=== PATIENT | female | born 1955 | race Caucasian/White ===

== ENCOUNTER → 2018-05-09 | Outpatient (CLI) | payer OTHER | END | disposition home or self-care (01) | LOC: RAH 09:48 | PROVIDERS: ATTEND Internal Medicine Medical Oncology | DX: R92.8 Other abnormal and inconclusive findings on diagnostic imaging of breast (principal); Z85.3 Personal history of malignant neoplasm of breast; Z98.82 Breast implant status | CPT/HCPCS: 77065 ==

== ENCOUNTER 2018-08-17 05:30 | Day surgery (SDC) | payer OTHER ==
[2018-08-17] VITALS (7 sets, daily range): BP systolic 105–144; BP diastolic 65–86
[~2018-08-17] VITALS: Ht 170.2 cm; Wt 85.7 kg
[~2018-08-17 05:30] MED LIST: APIX2.5T PO; ENAL1TAB10 PO; LETR2.5T6 PO; LEVO25TA54 PO; MONT10TA24 PO; P EP PO; ROSU10TA27 PO
[2018-08-17] MEDS ORDERED: SODIUM CHLORIDE 0.9% 1000ML 1,000 ML IV ONE (05:48)
[2018-08-17] MEDS ORDERED: PROPOFOL 10 MG/ML 20ML VIAL IV ONE ×2 (06:31)
[2018-08-17] MEDS ORDERED: GLYCOPYRROLATE 0.2 MG/ML 5 ML VIAL ONE (06:32)
[2018-08-17] MEDS ORDERED: LIDOCAINE HCL 1% 20 ML VIAL ONE (06:32)
== END 2018-08-17 07:55 | disposition home or self-care (01) ==
LOC: DAH 05:30 → ENDO 05:30
PROVIDERS: ATTEND Internal Medicine
DX: K62.1 Rectal polyp (principal); K64.0 First degree hemorrhoids; K57.30 Diverticulosis of large intestine without perforation or abscess without bleeding; Z86.010 Personal history of colon polyps; K31.7 Polyp of stomach and duodenum; K44.9 Diaphragmatic hernia without obstruction or gangrene; K31.89 Other diseases of stomach and duodenum; K22.8 Other specified diseases of esophagus; I10 Essential (primary) hypertension; E78.5 Hyperlipidemia, unspecified; J45.909 Unspecified asthma, uncomplicated; Z80.0 Family history of malignant neoplasm of digestive organs; Z98.890 Other specified postprocedural states; Z98.51 Tubal ligation status; Z79.899 Other long term (current) drug therapy; K21.9 Gastro-esophageal reflux disease without esophagitis; Z88.8 Allergy status to other drugs, medicaments and biological substances; K29.50 Unspecified chronic gastritis without bleeding
CPT/HCPCS: 43239; 45380; 88305; A4606 ×2; J2704 ×2; J3490; J7030; 45378

== ENCOUNTER → 2019-04-17 | Outpatient (CLI) | payer OTHER ==
[~2019-04-17] MED LIST changes: -ROSU10TA27 PO; +ROSU10TA28 PO
== END | disposition home or self-care (01) ==
LOC: RAH 04-13 08:47
PROVIDERS: ATTEND Family Medicine
DX: Z98.82 Breast implant status (principal); R89.7 Abnormal histological findings in specimens from other organs, systems and tissues; Z91.040 Latex allergy status; Z85.3 Personal history of malignant neoplasm of breast; Z90.11 Acquired absence of right breast and nipple
CPT/HCPCS: 77065

== ENCOUNTER → 2019-05-04 | Outpatient (CLI) | payer OTHER | END | disposition home or self-care (01) | LOC: RAH 07:56 | PROVIDERS: ATTEND Family Medicine | DX: R10.2 Pelvic and perineal pain (principal); R31.9 Hematuria, unspecified; Z79.811 Long term (current) use of aromatase inhibitors | CPT/HCPCS: 76700; 76856 ==

== ENCOUNTER → 2020-05-02 | Outpatient (CLI) | payer MEDICARE ==
[~2020-05-02] MED LIST changes: -LETR2.5T6 PO; +LETR2.5T7 PO; -MONT10TA24 PO; +MONT10TA26 PO
== END | disposition home or self-care (01) ==
LOC: RAH 12:40
PROVIDERS: ATTEND Family Medicine
DX: R92.8 Other abnormal and inconclusive findings on diagnostic imaging of breast (principal); Z98.82 Breast implant status; Z85.3 Personal history of malignant neoplasm of breast
CPT/HCPCS: 77065

== ENCOUNTER → 2020-10-15 | Outpatient (CLI) | payer MEDICARE ==
[~2020-10-15] MED LIST changes: -MONT10TA26 PO; +MONT10TA32 PO
== END | disposition home or self-care (01) ==
LOC: RAH 11:26
PROVIDERS: ATTEND Urology
DX: R31.29 Other microscopic hematuria (principal)
CPT/HCPCS: 76770

== ENCOUNTER → 2021-05-21 | Outpatient (CLI) | payer MEDICARE ==
[~2021-05-21] MED LIST changes: +MONT-39 PO; -MONT10TA32 PO
== END | disposition home or self-care (01) ==
LOC: RAH 12:46
PROVIDERS: ATTEND Internal Medicine Medical Oncology
DX: C50.911 Malignant neoplasm of unspecified site of right female breast (principal); R92.2 Inconclusive mammogram
CPT/HCPCS: 77065

== ENCOUNTER → 2021-12-04 | Outpatient (CLI) | payer MEDICARE ==
[~2021-12-04] MED LIST changes: +ENAL1TAB PO; -ENAL1TAB10 PO
== END | disposition home or self-care (01) ==
LOC: SHCH 12:54
PROVIDERS: ATTEND Internal Medicine Cardiovascular Disease
DX: I51.7 Cardiomegaly (principal); R00.2 Palpitations
CPT/HCPCS: 93306

== ENCOUNTER → 2022-06-24 | Outpatient (CLI) | payer MEDICARE | END | disposition home or self-care (01) | LOC: RAH 08:40 | PROVIDERS: ATTEND Family Medicine | DX: C50.911 Malignant neoplasm of unspecified site of right female breast (principal); Z85.3 Personal history of malignant neoplasm of breast; Z98.82 Breast implant status | CPT/HCPCS: 77065 ==

== ENCOUNTER → 2024-04-19 | Outpatient (CLI) | payer MEDICARE ==
[~2024-04-19] MED LIST changes: -ROSU10TA28 PO; +ROSU10TA72 PO
--- NOTE | 2024-04-20 09:33 | HMCIMG ---
PROCEDURE: MAMMO DX IMPLANT UNI LEFT HISTORY: Right breast cancer COMPARISON: 06/24/2022 TECHNIQUE: Left breast digital diagnostic mammogram with CAD was performed. Additional magnification views of left breast were obtained. Additional pushback views were obtained. FINDINGS: There are scattered areas of fibroglandular density. There is left breast implants. There are interval development of left breast coarse calcifications not present on previous study. Patient is concerned about right chest wall. Patient is status post right mastectomy. If needed, ultrasound is recommended for complete evaluation. Case was discussed with the referring physician office. There is no evidence of a dominant mass, or suspicious microcalcification. There is no evidence of nipple retraction or skin thickening. IMPRESSION: 1. Interval development of left breast microcalcifications are seen which is coarse appearance. Six-month follow-up study is recommended. BI-RADS: CATEGORY 3: PROBABLE BENIGN-SHORT INTERVAL FOLLOWUP SUGGESTED Recommend monthly self breast exam as well as annual clinical examination. A negative x-ray should not delay biopsy if a dominant or clinically suspicious mass is present, since 8-10% of cancers are not identified by mammography. Dense breasts particularly, may obscure an underlying neoplasm. Some of these may be detected clinically and therefore, clinical examination is an essential part of breast evaluation.
== END | disposition home or self-care (01) ==
LOC: RAH 14:42
PROVIDERS: ATTEND Family Medicine
DX: R92.322 Mammographic fibroglandular density, left breast (principal); R92.1 Mammographic calcification found on diagnostic imaging of breast; D05.11 Intraductal carcinoma in situ of right breast; Z90.11 Acquired absence of right breast and nipple; Z85.3 Personal history of malignant neoplasm of breast; Z98.82 Breast implant status
CPT/HCPCS: 77065

== ENCOUNTER → 2024-05-07 | Outpatient (CLI) | payer MEDICARE ==
--- NOTE | 2024-05-07 15:18 | HMCIMG ---
US BREAST COMPLETE UNILATERAL REASON: Intraductal carcinoma in situ of right breast. COMPARISON: Previous mammograms and ultrasounds. TECHNIQUE: Right breast ultrasound was performed FINDINGS: There is an implant in place. There is no evidence of rupture. There is normal-appearing subcutaneous soft tissue. There is a history of breast reconstruction following mastectomy, there is no visible cyst or mass. There is no architectural distortion. IMPRESSION: 1. Normal-appearing implants. 2. Normal-appearing soft tissues, no focal mass lesion identified.
== END | disposition home or self-care (01) ==
LOC: RAH 13:35
PROVIDERS: ATTEND Family Medicine
DX: D05.11 Intraductal carcinoma in situ of right breast (principal)
CPT/HCPCS: 76641

== ENCOUNTER → 2024-05-24 | Outpatient (CLI) | payer MEDICARE ==
--- NOTE | 2024-05-24 15:05 | HMCIMG ---
US BREAST COMPLETE UNILATERAL REASON: ABN MMG/CALCIFICATIONS COMPARISON: Mammogram 04/19/2024 TECHNIQUE: Left breast ultrasound was performed and compared to the mammogram. FINDINGS: There is normal sonographic appearance of the breast parenchyma. There are no focal masses. There are no cysts. There is no architectural distortion or acoustical shadowing. Underlying implant appears unremarkable with no evidence of rupture. The punctate microcalcifications seen on the mammogram are not visible on the ultrasound image. IMPRESSION: 1. Normal left breast ultrasound including normal appearance of the implant.
== END | disposition home or self-care (01) ==
LOC: RAH 13:39
PROVIDERS: ATTEND Family Medicine
DX: R92.0 Mammographic microcalcification found on diagnostic imaging of breast (principal)
CPT/HCPCS: 76641